=== PATIENT | male | born 1995 | race Caucasian/White ===

== ENCOUNTER 2020-09-11 20:37 | Emergency (ER) | payer OTHER, SELFPAY ==
[2020-09-11 20:37] VITALS: BP 148/103; PULSE 116; RESP 20; TEMP 36.9; O2SAT 98; BMI 21.6
--- NOTE | 2020-09-11 21:02 | ED.DCSUM_ITS ---
- ER Visit Summary Date of Service: 09/11/20 Chief Complaint: Left upper dental pain History of Present Illness: The patient is a 25 M history of a cardiac ablation at age 8. Patient has some fractured upper left dentition. He sees [facility]. His boss is actually a nurse practitioner and wrote him for amoxicillin, ibuprofen and gabapentin for the pain. Patient just want to have it checked to make sure he is not developing an abscess. He denies any fever or chills. Physical Examination: Appearing young male. Accompanied by significant other. Vital signs are stable and afebrile. H EENT exam his left upper tooth and incisor have been fractured at the gumline. There is no bleeding. There is minimal gingival swelling. There is no abscess. Other dentition is in pretty good shape. He is able to open and close his mouth any difficulty. No trismus. Posterior pharynx is normal. Moist mucous membranes. Neck nontender. No lymphadenopathy. Lungs clear to auscultation bilaterally. Heart regular rhythm no murmur. Otherwise exam unremarkable. Test Results: None Emergency Department Course and Treatment: Patient with dental pain from dental cavities and early gingivitis. He is already on amoxicillin and ibuprofen for pain. Treatment Plan: Continue his current medications. Follow-up with his dentist. Disposition: discharge Impression: Dental pain Gingivitis This note was generated with [employer] dictation software. It may contain incorrect words, spelling, and punctuation that were not noted in review of the chart prior to signing ED Disposition - Plan for ED Patient: Referrals: [facility],Out of [Primary Care Provider] -
--- NOTE | 2020-09-11 21:05 | ED.DEP ---
ED Disposition - Plan for ED Patient: Disposition: Home or Assisted Living Instructions: ED Dental Pain Referrals: [facility],Out of [Primary Care Provider] - As soon as possible Additional Instructions: Ibuprofen and Tylenol for the pain. Finish the antibiotic. Warm salt water gargling. Follow-up with [facility].
== END 2020-09-11 21:29 | disposition home or self-care (01) ==
LOC: ED 21:15
PROVIDERS: Emergency Provider Emergency Medicine; PCP Family Medicine
DX: K05.10 Chronic gingivitis, plaque induced (principal); K02.9 Dental caries, unspecified; S02.5XXA Fracture of tooth (traumatic), initial encounter for closed fracture; X58.XXXA Exposure to other specified factors, initial encounter; Y93.9 Activity, unspecified; Y92.9 Unspecified place or not applicable; Y99.9 Unspecified external cause status; Z72.0 Tobacco use
CPT/HCPCS: 99282

== ENCOUNTER → 2025-03-29 | Outpatient (CLI) | payer MEDICAID, SELFPAY ==
[2025-03-29 16:52] LABS: Hematocrit 49.3 % (40-54); Hemoglobin 16.2 g/dL (13.0-16.5); Immature Granulocytes Count 0.020 X10^3/uL (0.0-0.0); Mean Corp Hgb Conc 32.9 g/dL (32-36); Mean Corpuscular Volume 81.4 fL (80-94); Mean Platelet Vol. 10.4 fl (6.2-12.0); NRBC Flagged by Analyzer 0 % (0-5); Platelet Count 370 K/mm3 (150-450); RBC Distribution Width CV 12.5 % (11.6-14.6); RBC Distribution Width SD 36.8 fl (35.1-43.9); Red Blood Count 6.06 M/mm3 (4.6-6.2); White Blood Count 7.2 K/mm3 (4.4-11.0)
[2025-03-29 16:57] LABS: Color, Urine Straw (Yellow); Glucose, Dipstick Normal (Normal); Ketone-Dipstick Negative (Negative); Leukocyte Esterase-Dipstick Negative /ul (Negative); Nitrite-Dipstick Negative (Negative); Occult Blood-Urine Negative /ul (Negative); Protein-Dipstick Negative (Negative); Specific Gravity, Urine 1.010 (1.002-1.030); Urine Bilirubin Dipstick Negative (Negative)
[2025-03-29 17:25] LABS: AST(SGOT) 24 U/L (<=37); Alanine Aminotransfer ALT/SGPT 31 U/L (<=46); Albumin, Serum 5.0 g/dL (3.5-5.0); Alkaline Phosphatase 68 U/L (40-129); Anion Gap 14 (5-15); BUN 16 mg/dL (4-19); BUN/Creat Ratio 15.5 RATIO (10-20); Calcium,Total 10.1 mg/dL (7.6-11.0); Carbon Dioxide 23.7 mmol/L (21.0-32.0); Chloride 102 mmol/L (98-108); Cholesterol 228 mg/dL (<=200); Globulin 2.8 g/dL (2.2-4.2); Glucose 79 mg/dL (70-99); Low Density Lipoprotein Calc. 153 mg/dL; Potassium 3.5 mmol/L (3.3-5.1); Syphilis Antibodies Nonreactive (Nonreactive); Triglycerides 186 mg/dL; Very Low Density Lipoprotein 37 mg/dL (5-40); Vitamin B12 543 pg/mL (180-914); Vitamin D,25 Hydroxy 32.9 ng/mL (30-100); cholesterol:hdl ratio screen 6.03
--- OUTSIDE RECORDS SUMMARY | 2025-03-29 18:04 | XMS RPT_ITS | CCD ---
Author Organization [facility] Care Team Providers Care Conveyor Feeder Name Role Phone Cathy Holbrook Attending Unavailable Prosper Santana Referring Unavailable Prosper Santana Primary Care Unavailable Allergies Allergy Classification Reported Allergen(s) Allergy Type Date of Onset Reaction(s) Facility (1 source) Grass pollen Drug allergy (disorder) 11-22-2023 [facility] Repository Results Test Name Value Interpretation Reference Range Facility Urgent Care Visit Reporton 0 11-22-2023 Urgent Care Visit Report [facility] [address], [address] [place], [place] [address] OFFICE VISIT Date of Service: 11/22/23 MR#: [id number] Acct: [id number] Name: JONAINSLEY Rep #: [id number] : 1995 Provider: EAD Holbrook Age/Sex: 28/M Location: [facility] Status: Signed Intake Vital Signs 09/11/20 20:37 11/22/23 11:48 Height 5 ft 6 in 5 ft 6 in Weight: 158 lb 6 oz BMI 25.5 BP 124/86 H Blood Pressure Location Lt brachial Position Sitting Respiration 16 Pulse 74 Pulse Source Monitor Temp 98.4 F Temp Source Temporal Pulse Oximetry (%) 98 Oxygen Delivery Method room air Intake Visit Reasons: Rash Chief Complaint: rash B/L under arms/ groin area 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 Accompanied by: Self Is patient in pain?: No Allergies grass pollen Allergy (Mild, Verified 11/22/23 11:58) sneezing Medications ???Medication ???Instructions ???Recorded ???Confirmed ???Type loratadine 10 mg tablet (Claritin) 10 mg PO DAILY 11/22/23 History nystatin 100,000 unit/gram topical 1 applic topical TID #30 grams 11/22/23 11/22/23 Rx ointment [facility] Social History (Updated 11/22/23 @ 11:43 by Nelda Alvarez MA) Smoking Status: Never smoker Smokeless tobacco user: chewing tobacco HPI HPI Chief Complaint: rash B/L under arms/ groin area Details: AINSLEY WEBB, is a 28 M who presents to the office today for rash -rash present for 3-4 wks started to get better -thought was from deodorant-was using Old Spice- switched to hypoallergenic when rash started- but continued to break out, however rash was not completely gone -rash under bilateral arms and a little on groin- 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 -denies drainage, fever or chills + pain -tried so far aloe, cortisone, fiances eczema cream ROS Const Constitutional: Positive for other (ROS negative x6 except what was placed in HPI) Exam Const General: cooperative and no acute distress Orientation: alert and oriented x3 Resp Effort Inspection: normal respiratory effort, able to speak in complete sentences and symmetric chest movement Auscultation: Bilateral: Clear to Auscultation, Left: Clear to Auscultation and Right: Clear to Auscultation Cardio Rate: regular rate Rhythm: regular rhythm Heart Sounds: S1 normal and S2 normal GI Auscultation: normal bowel sounds Palpation: soft and no hepatosplenomegaly Skin Other: bilateral axilla and groin with regions of erythema and peripheral scaling- no swelling or discharge Neuro General: patient alert, patient awake and patient oriented x3 Extrem General: normal to inspection and full ROM Psych Appearance: grossly normal Mental Status: mental status grossly normal Attitude: cooperative Thought Process: normal Thought Content: normal Judgment: judgment good Coding Level of Care Code Off vis,new,level 3 Diagnoses Rash R21 Intertrigo L30.4 Assessment and Plan Assessment and Plan (1) Rash: (2) Intertrigo: Status: Acute Medications: New nystatin 1 applic topical TID 30 grams 0RF Plan -discussed indication of medication -keep areas dry- wear cotton- try to leave open to air as much as possible- after washing areas pat dry -avoid deodorant when rash present -after rash subsides to prevent recurrence can use barrier creams like vaseline or zinc oxide 11/22/23 1220 Date Cathy Rosales Signature: Date (if applicable) CC: Normal [facility] 02-13-2019 [facility] DATE OF SERVICE: 05/2019 CHIEF COMPLAINT: Patient seen and examined by Liliana Santacruz PA-C, for a chief complaint of rash. 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 States that he gets poison jazmin often. In this case, it has been going on for a couple weeks. He thought he was getting it cleared up and it came back so he comes in for evaluation. He denies any other symptoms or complaints. Otherwise, feels well and no complaints. PAST MEDICAL HISTORY: Reviewed per nursing notes, considered. SOCIAL HISTORY: He uses chew tobacco and drinks alcohol weekly. REVIEW OF SYSTEMS: Per HPI, otherwise unremarkable. PHYSICAL EXAMINATION: This is a well-appearing, 23-year-old male in no acute distress. Vitals are normal. Skin: He has linear, vesicular, papulovesicular rash on the back of the bilateral hands and up the forearms and same on the anterior aspect of his chest and abdomen. CLINICAL IMPRESSION: Acute contact dermatitis. TREATMENT: He is prescribed prednisone taper. Instructed on supportive care and followup. The patient agreeable. Liliana Santacruz PA-C [id number] SSI File#: [id number] Verified/Reviewed by 03/15/19 Naveed OGLESBY [facility] PATIENT NAME: AINSLEY WEBB [facility] MEDICAL REC #: [id number] [place] [address] [facility] RE[facility]ICIAN Normal [facility] Encounters Encounter Date Encounter Type Care Provider Facility Start: 11-22-2023 End: 11-22-2023 ambulatory [facility] Facility:[facility] Payers Date Payer Category Payer Self-pay 2023 Unknown [id number] Unknown [id number] Summary Purpose Family History No Family History Records FoundNo Family History Records Found Advance Directives No Advanced Directives Records FoundNo Advanced Directives Records Found Additional Source Comments (unrecognized sect ion and content) No Status Records FoundNo Status Records Found INFORMATION SOURCE (unrecogn ized section and content) DATE CREATED AUTHOR 03/15/2019 [facility] [place] DATE CREATED AUTHOR AUTHOR'S ORGANIZ ATION 11/24/2023 [facility] FOR RECORDS PERTAINING TO PATIENTS WHO ARE OR HAVE BEEN ENROLLED IN A CHEMICAL DEPENDENCY/SUBSTANCEABUSE PROGRAM, SOME INFORMATION MAY BE OMITTED. This clinical summary was aggregated from multiple sources. Caution should be exercised in using it in the provision of clinical care. This summary normalizes information from multiple sources, and as a consequence, information in this document may materially change the coding, format and clinical context of patient data. In addition, data may be omitted in some cases. CLINICAL DECISIONS SHOULD BE BASED ON THE PRIMARY CLINICAL RECORDS. [employer] provides no warranty or guarantee of the accuracy or completeness of information in this document.
== END | disposition home or self-care (01) ==
LOC: VSLAB 14:48
PROVIDERS: PCP Nurse Practitioner Family; Visit Provider Nurse Practitioner Family
DX: Z00.00 Encounter for general adult medical examination without abnormal findings (principal); E56.9 Vitamin deficiency, unspecified
CPT/HCPCS: 36415; 80053; 80061; 81002; 82306; 82607; 84443; 85025; 86780; 87491; 87591